=== PATIENT | female | born 1960 | race Caucasian/White ===

== ENCOUNTER 2016-09-08 09:01 | Emergency (ER) | payer OTHER ==
--- NOTE | 2016-09-08 09:15 | UC ---
Head Injury HPI - HPI Summary HPI Summary: 56 year old female presents with complains of head injury. The patient fell last week and has a large left sided cephalohematoma . She also has a left raccon eye. I will send her to the ER. Spoke to Jill Chan. - History Of Current Complaint Stated Complaint: HEAD INJURY ON 08/31 Time Seen by Provider: 09/08/16 09:05 - Allergies/Home Medications Allergies/Adverse Reactions: Allergies Allergy/AdvReac Type Severity Reaction Status Date / Time Nitrofurantoin Allergy Mild Hives Verified 09/08/16 09:07 [From Macrobid] Codeine Allergy Hives Verified 09/08/16 09:07 Sulfa Drugs Allergy Hives Verified 09/08/16 09:07 Home Medications: Home Medications Cyclosporine 0.05% OPHTH (NF) [Restasis 0.05% OPHTH] 1 drop BOTH EYES BID [History Confirmed 09/08/16] PMH/Surg Hx/FS Hx/Imm Hx Other History Of: Negative For: Anticoagulant Therapy - Surgical History Surgical History: Yes Surgery Procedure, Year, and Place: 2 C SECTIONS, 1995, 1997, [facility]. INCISIONAL HERNIA, 1997, [facility]. GALLBLADDER, 2006, [facility]. HYSTERECTOMY, 2003, [facility] - Social History Alcohol Use: Rare Substance Use Type: None Smoking Status (MU): Never Smoked Tobacco Review of Systems Constitutional: Negative Skin: Bruising - left cephalohematoma Eyes: Eye Redness, Other - left eye swelling ENT: Negative Respiratory: Negative Cardiovascular: Negative Gastrointestinal: Negative Genitourinary: Negative Motor: Negative Neurovascular: Negative Musculoskeletal: Negative Neurological: Negative Psychological: Negative All Other Systems Reviewed And Are Negative: Yes Physical Exam Triage Information Reviewed: Yes Head Injury Course/Dx - Differential Dx/Diagnosis Provider Diagnoses: head injury. left cephalohematoma. left eye swelling. left racoon eye Discharge - Discharge Plan Condition: Stable Disposition: AGAINST MEDICAL ADVICE Referrals: Ladonna Esuqeda MD [Primary Care Provider] -
[2016-09-08 09:16] VITALS: BP 125/86
== END 2016-09-08 09:26 | disposition left against medical advice (07) ==
LOC: UCCORT 09:01
DX: S06.2X0A Diffuse traumatic brain injury without loss of consciousness, initial encounter (principal); H57.8 Other specified disorders of eye and adnexa; S05.12XA Contusion of eyeball and orbital tissues, left eye, initial encounter; W19.XXXA Unspecified fall, initial encounter; Y92.9 Unspecified place or not applicable; Z53.21 Procedure and treatment not carried out due to patient leaving prior to being seen by health care provider
CPT/HCPCS: 99212; G0463